=== PATIENT | female | born 1940 | race Caucasian/White ===

== ENCOUNTER → 2017-02-21 | Outpatient (CLI) | payer OTHER ==
[~2017-02-21] MED LIST: AMOX875T PO; CHOL100010 PO; COQ10 PO; CYAN10005 PO; METO25TA3 PO; METO25TA56 PO; MULT-513 PO; OMEG10007 PO; OMEGA RED PO; OMEP40CA41 PO; OXYC-57 PO; [UNRECOGNIZED DRUG - REMARK]
[2017-02-21 12:42] LABS: ALT/SGPT 27 U/L (12-78); AST/SGOT 22 U/L (15-37); BLOOD UREA NITROGEN 10 mg/dl (7-18); BUN/CREATININE RATIO 14.5 (10-20); CARBON DIOXIDE 26 mmol/L (21-32); CHLORIDE 106 mmol/L (98-107); CHOLESTEROL 231 mg/dl (0-200); CREATININE 0.71 mg/dl (0.60-1.20); GLUCOSE 83 mg/dl (70-99); POTASSIUM 3.7 mmol/L (3.5-5.1); SODIUM 140 mmol/L (136-145); TRIGLYCERIDES 186 mg/dl (0-150); VERY LOW DENSITY LIPOPROT CALC 37 mg/dl
[2017-02-21 12:45] LABS: ALKALINE PHOSPHATASE 73 U/L (45-117); CHOLESTEROL/HDL RATIO 3.7; HDL CHOLESTEROL 62 mg/dl; LDL CHOLESTEROL CALCULATED 132 mg/dl
== END | disposition home or self-care (01) ==
LOC: C.LABBFT 10:03
PROVIDERS: ATTEND Nurse Practitioner
DX: E78.5 Hyperlipidemia, unspecified (principal)

== ENCOUNTER 2017-04-20 19:07 | Emergency (ER) | payer OTHER ==
[~2017-04-20] VITALS: Ht 162.6 cm; Wt 61.0 kg
[~2017-04-20 19:07] MED LIST changes: -AMOX875T PO; -CHOL100010 PO; -COQ10 PO; -CYAN10005 PO; -METO25TA3 PO; -METO25TA56 PO; -MULT-513 PO; -OMEG10007 PO; -OMEGA RED PO; -OMEP40CA41 PO; -OXYC-57 PO
[2017-04-20 19:18] VITALS: TEMP 36.3; Ht 162.6 cm; Wt 61.0 kg
[2017-04-20] MEDS ORDERED: METOCLOPRAMIDE HCL INJ 5 MG/ML 2 ML VIAL IV STA (19:44)
[2017-04-20] MEDS ORDERED: SODIUM CHLORIDE 0.9% 1000ML 1,000 ML IV STA (19:44)
[2017-04-20] MEDS ORDERED: MULT-513 PO (20:06)
[2017-04-20] MEDS ORDERED: CYAN10005 PO (20:06)
[2017-04-20] MEDS ORDERED: METO25TA3 PO (20:06)
[2017-04-20] MEDS ORDERED: OMEP40CA41 PO (20:06)
[2017-04-20] MEDS ORDERED: OPTIRAY 320 IV PRN (20:15)
[2017-04-20 20:28] LABS: BASO % 0.7 %; BASO ABS # 0.04 K/uL (0-0.2); COMPLETE YES; EOS % 3.5 %; IG% 0.2 %; LYMPH % 19.3 %; LYMPH ABS # 1.16 K/uL (1.2-3.4); MEAN CELL VOLUME 88.6 fL (80-100); MEAN CORPUSCULAR HEMOGLOBIN 29.7 pg (25-34); MEAN CORPUSCULAR HGB CONC 33.6 g/dl (32-36); MEAN PLATELET VOLUME 9.9 fL (7.4-10.4); NEUT % 65.3 %; PLATELET COUNT 286 K/uL (130-400); RED BLOOD COUNT 4.74 M/uL (4.2-5.4); WHITE BLOOD COUNT 6.01 K/uL (4.8-10.8)
--- NOTE | 2017-04-20 20:33 | EMERGENCY ROOM VISIT NOTE ---
History Report prepared by Tameka: Bryan Gifford Under the Supervision of: Dr. Bj Hernandez M.D. First contact with patient: 19:23 Chief Complaint: ABDOMINAL PAIN Stated Complaint: ABDOMINAL PAIN, SWEATING, BACK PAIN Nursing Triage Summary: Left lower abdominal pain radiating to flank after eating. History of Present Illness The patient is a 77 year old female who presents to the Emergency Room with complaints of intermittent left lower abdominal pain starting a few minutes prior to arrival. She describes it as a sharp pain. The patient had an onset of her symptoms after finishing eating chicken noodle casserole. The patient also reports nausea and vomiting. She currently denies any pain. She has a history of cholecystectomy. She denies any blood thinners. She denies any other complaints. Source of History: patient Onset: a few minutes prior to arrival Position: abdomen (LLQ) Symptom Intensity: No pain currently Quality: sharp Timing: intermittent Associated Symptoms: + nausea, + vomiting Review of Systems See HPI for pertinent positives & negatives. A total of 10 systems reviewed and were otherwise negative. Past Medical & Surgical Surgical Problems: (1) Hx of cholecystectomy Family History Patient reports no known family medical history. Social History Smoking Status: Never Smoker Marital Status: Occupation Status: retired Current/Historical Medications Scheduled Amoxicillin & Pot Clavulanate (Augmentin 875-125 mg), 1 TAB PO BID Cyanocobalamin (Vitamin B-12), 1,000 MCG PO DAILY Metoprolol Succ (Toprol Xl) (Toprol-Xl), 12.5 MG PO BID Multivitamins/Minerals (Mvi With Minerals), 1 TAB PO DAILY Scheduled PRN Omeprazole (Prilosec), 40 MG PO DAILY PRN for Dyspepsia Oxycodone/Acetaminophen 5MG/325MG (Percocet 5MG/325MG), 1-2 TAB PO Q4H PRN for Pain Allergies Coded Allergies: Codeine (Verified Allergy, Mild, ABD PAIN, 03/02/10) Physical Exam Vital Signs Date Time Temp Pulse Resp B/P (MAP) Pulse Ox O2 Delivery O2 Flow Rate FiO2 04/20/17 22:32 57 20 151/64 96 Room Air 04/20/17 21:41 60 16 102/73 97 Room Air 04/20/17 20:52 60 04/20/17 20:44 56 18 136/63 94 Room Air 04/20/17 19:18 36.3 65 20 134/82 92 Room Air Physical Exam GENERAL: Patient is a healthy-appearing well-nourished HEAD: Normocephalic atraumatic EYES: Ocular movements intact pupils equal and react to light OROPHARYNX mucous membranes are moist no exudates present no erythema or edema present NECK: Supple no nuchal rigidity CHEST: Good equal expansion LUNGS: Clear and equal to auscultation CARDIAC: Normal S1 and S2 ABDOMEN: Soft nontender no guarding BACK: No CVA tenderness EXTREMITIES: No pain upon palpation normal muscle strength in all groups no clubbing cyanosis or edema NEURO: Patient is following commands and answering questions appropriately. Alert and oriented x3 Cranial Nerves 2-12 grossly intact Medical Decision & Procedures ER Provider Diagnostic Interpretation: CT and US results as stated below per my review and radiologist interpretation: ABD/PELVIS IV CONTRAST ONLY HISTORY: 77 years-old Female Pt c/o RUQ abd pain COMPARISON: None available TECHNIQUE: Multiple axial CT images of the abdomen and pelvis were obtained following the intravenous administration of 116 mL Optiray 320. A dose lowering technique was used consistent with the principals of JUDAH. FINDINGS: There is minimal dependent bibasilar atelectasis. No pneumoperitoneum identified. Inferior cardiac chambers are unremarkable. Prior cholecystectomy. The liver, spleen, pancreas and adrenal glands appear normal. There is a 2.6 x 2.4 x 2.1 cm hyperattenuating homogeneous lesion of the supra pole left kidney with Hounsfield unit of 78 compatible with hemorrhagic or proteinaceous cyst. Multiple additional cysts are seen in the left. There are several nonobstructing renal calculi on the left measuring up to 5 mm. There is no hydronephrosis. Urinary bladder is collapsed. Uterus appears age appropriate. There is mild atherosclerotic plaquing of the abdominal aorta. No bulky adenopathy is identified. Small sliding type hiatal hernia is noted. There is no bowel obstruction. There is mild wall thickening involving the mid sigmoid colon which may be secondary to nondistention with multiple diverticuli seen within this distribution (for example image 321 of the axial series. The remainder of the colon is within normal limits. The appendix is normal. Soft tissues are unremarkable. Bones appear intact. IMPRESSION: 1. Mild wall thickening of the mid sigmoid colon with associated colonic diverticuli may reflect sequela of nondistention or early acute diverticulitis. 2. Prior cholecystectomy without focal abnormality identified involving the abdominal right upper quadrant. 3. Multiple left-sided renal cysts with proteinaceous or hemorrhagic cyst measuring 2.6 cm. 4. Multiple left-sided nonobstructing renal calculi. 5. Normal appendix. The above report was generated using voice recognition software. It may contain grammatical, syntax or spelling errors. Electronically signed by: Eber Boss M.D. 04/20/2017 9:23 PM Dictated Date/Time: 04/20/2017 9:16 PM ABDOMEN LIMITED (US) HISTORY: 77 years-old Female Pt c/o RUQ abd pain COMPARISON: 03/02/2010 TECHNIQUE: Multiple real-time static images of the abdominal right upper quadrant were obtained assessing grayscale appearance and color flow FINDINGS: Imaged pancreas appears normal with tail obscured by bowel gas. Common bile duct measures 0.9 cm, likely normal post cholecystectomy state from reservoir effect. Liver is diffusely heterogeneous compatible with fatty infiltration measuring up to 12.2 cm. Prior cholecystectomy. The right kidney is normal without hydronephrosis. IMPRESSION: 1. Prior cholecystectomy with likely normal mild postcholecystectomy state common bile duct dilation. 2. Fatty infiltration of the liver. The above report was generated using voice recognition software. It may contain grammatical, syntax or spelling errors. Electronically signed by: Eber Boss M.D. 04/20/2017 9:41 PM Dictated Date/Time: 04/20/2017 9:39 PM Laboratory Results 04/20/17 20:15 Red Blood Count 4.74, Mean Corpuscular Volume 88.6, Mean Corpuscular Hemoglobin 29.7, Mean Corpuscular Hemoglobin Concent 33.6, Mean Platelet Volume 9.9, Neutrophils (%) (Auto) 65.3, Lymphocytes (%) (Auto) 19.3, Monocytes (%) (Auto) 11.0, Eosinophils (%) (Auto) 3.5, Basophils (%) (Auto) 0.7, Neutrophils # (Auto ) 3.93, Lymphocytes # (Auto) 1.16, Monocytes # (Auto) 0.66, Eosinophils # (Auto ) 0.21, Basophils # (Auto) 0.04 04/20/17 20:15 Test 04/20/17 20:15 White Blood Count 6.01 K/uL (4.8-10.8) Red Blood Count 4.74 M/uL (4.2-5.4) Hemoglobin 14.1 g/dL (12.0-16.0) Hematocrit 42.0 % (37-47) Mean Corpuscular Volume 88.6 fL (80-100) Mean Corpuscular Hemoglobin 29.7 pg (25-34) Mean Corpuscular Hemoglobin Concent 33.6 g/dl (32-36) Platelet Count 286 K/uL (130-400) Mean Platelet Volume 9.9 fL (7.4-10.4) Neutrophils (%) (Auto) 65.3 % Lymphocytes (%) (Auto) 19.3 % Monocytes (%) (Auto) 11.0 % Eosinophils (%) (Auto) 3.5 % Basophils (%) (Auto) 0.7 % Neutrophils # (Auto) 3.93 K/uL (1.4-6.5) Lymphocytes # (Auto) 1.16 K/uL (1.2-3.4) Monocytes # (Auto) 0.66 K/uL (0.11-0.59) Eosinophils # (Auto) 0.21 K/uL (0-0.5) Basophils # (Auto) 0.04 K/uL (0-0.2) RDW Standard Deviation 39.5 fL (36.4-46.3) RDW Coefficient of Variation 12.2 % (11.5-14.5) Immature Granulocyte % (Auto) 0.2 % Immature Granulocyte # (Auto) 0.01 K/uL (0.00-0.02) Urine Color YELLOW Urine Appearance CLEAR (CLEAR) Urine pH 5.5 (4.5-7.5) Urine Specific [place] 1.019 (1.000-1.030) Urine Protein NEG (NEG) Urine Glucose (UA) NEG (NEG) Urine Ketones NEG (NEG) Urine Occult Blood 1+ (NEG) Urine Nitrite NEG (NEG) Urine Bilirubin NEG (NEG) Urine Urobilinogen NEG (NEG) Urine Leukocyte Esterase SMALL (NEG) Urine WBC (Auto) 1-5 /hpf (0-5) Urine RBC (Auto) 0-4 /hpf (0-4) Urine Hyaline Casts (Auto) 1-5 /lpf (0-5) Urine Epithelial Cells (Auto) 10-20 /lpf (0-5) Urine Bacteria (Auto) NEG (NEG) Anion Gap 7.0 mmol/L (3-11) Est Creatinine Clear Calc Drug Dose 41.4 ml/min Estimated GFR () 63.4 Estimated GFR (Non- 54.7 BUN/Creatinine Ratio 11.6 (10-20) Calcium Level 9.1 mg/dl (8.5-10.1) Total Bilirubin 0.3 mg/dl (0.2-1) Direct Bilirubin 0.1 mg/dl (0-0.2) Aspartate Amino Transf (AST/SGOT) 27 U/L (15-37) Alanine Aminotransferase (ALT/SGPT) 30 U/L (12-78) Alkaline Phosphatase 83 U/L (45-117) Total Protein 7.5 gm/dl (6.4-8.2) Albumin 3.8 gm/dl (3.4-5.0) Lipase 239 U/L (73-393) Labs reviewed by ED physician. Medications Administered Medications (Trade) Dose Ordered Sig/Madi Route Start Time Stop Time Status Last Admin Dose Admin Sodium Chloride 1,000 ml @ 999 mls/hr Q1H1M STAT IV 04/20/17 19:44 04/20/17 20:44 DC 04/20/17 20:42 999 MLS/HR Metoclopramide HCl (Reglan Inj) 10 mg NOW STAT IV 04/20/17 19:44 04/20/17 19:47 DC 04/20/17 20:42 10 MG ED Course 1922: Past medical records reviewed. The patient was evaluated in room C05. A complete history and physical examination was performed. 1943: Reglan Inj 10 mg IV, Sodium Chloride 1000 ml @ 999 mls/hr IV 5: Upon reexamination the patient is resting comfortably. I discussed results and treatment plan with the patient. She verbalizes agreement and understanding. The patient is ready for discharge. Medical Decision Differential diagnosis: Etiologies such as appendicitis, diverticulitis, PUD, biliary pathology, UTI, pancreatitis, obstruction, mesenteric ischemia, aortic pathology, infections, inflammatory bowel disease, renal colic, as well as others were entertained. This is a 77-year-old female who presents emergency department complaining of abdominal pain. Serial abdominal examinations were performed on the patient in the emergency department no time did the patient exhibit a surgical abdomen. Based on these findings an IV was established, the patient given normal saline bolus. I do feel the patient is well enough to be discharged home however she does appear to have an early diverticulitis on CAT scan. For this reason I will place the patient on Augmentin and stressed the need for follow-up with gastroenterology. Patient was given pain medication for home and I stressed a clear liquid diet for the next 48 hours. The patient is to return to the emergency department if she develops fevers or her pain is out of control. Patient was in agreement with the treatment plan. Medication Reconcilliation Current Medication List: was personally reviewed by me Blood Pressure Screening Patient's blood pressure: Normal blood pressure Impression Primary Impression: Diverticulitis Additional Impression: Abdominal pain Scribe Attestation The scribe's documentation has been prepared under my direction and personally reviewed by me in its entirety. I confirm that the note above accurately reflects all work, treatment, procedures, and medical decision making performed by me. Departure Information Dispostion Home / Self-Care Prescriptions Oxycodone/Acetaminophen 5MG/325MG (PERCOCET 5MG/325MG) Tab 1-2 TAB PO Q4H Y for Pain, #14 TAB Prov: Bj Hernandez MD 04/20/17 Amoxicillin & Pot Clavulanate (Augmentin 875-125 mg) 1 Tab Tab 1 TAB PO BID for 10 Days, #20 TAB Prov: Bj Hernandez MD 04/20/17 Referrals Venessa Healy, C.R.N.P. (PCP) Forms HOME CARE DOCUMENTATION FORM, IMPORTANT VISIT INFORMATION, School Instructions, Work Instructions Patient Instructions Diverticulosis Diverticulitis, [facility] Additional Instructions Follow up with DR Toure's office Clear liquid diet next 48 hours You received narcotic or benzodiazepene medication while in the emergency room today. Do not drive, operate heavy machinery, or drink alcohol under the influence of this medication. Take 600 mg Ibuprofen every 6 hours Take Percocet for breakthrough pain You have been examined and treated today on an emergency basis only. This is not a substitute for, or an effort to provide, complete comprehensive medical care. It is impossible to recognize and treat all injuries or illnesses in a single emergency department visit. It is therefore important that you follow up closely with your PCP. Call as soon as possible for an appointment. Thank you for your time and consideration. I look forward to speaking with you again soon. Please don't hesitate to call us if you have any questions. Problem Qualifiers Primary Impression: Diverticulitis Diverticulitis site: large intestine Diverticulitis bleeding: unspecified bleeding status Diverticulitis complication: without perforation or abscess Qualified Codes: K57.32 - Diverticulitis of large intestine without perforation or abscess without bleeding Additional Impression: Abdominal pain Abdominal location: generalized Qualified Codes: R10.84 - Generalized abdominal pain
[2017-04-20 20:49] LABS: BUN/CREATININE RATIO 11.6 (10-20); CALCIUM 9.1 mg/dl (8.5-10.1); POTASSIUM 3.2 mmol/L (3.5-5.1)
[2017-04-20 20:58] LABS: URINE APPEARANCE CLEAR (CLEAR); URINE BILIRUBIN NEG (NEG); URINE COLOR YELLOW; URINE NITRITE NEG (NEG); URINE PH 5.5 (4.5-7.5); URINE SPECIFIC GRAVITY 1.019 (1.000-1.030); UROBILINOGEN NEG (NEG)
[2017-04-20 21:02] LABS: MANUAL MICROSCOPIC REQUIRED? NO; REVIEW REQ? NO
--- NOTE | 2017-04-20 21:24 | DIAGNOSTIC IMAGING REPORT ---
ABD/PELVIS IV CONTRAST ONLY HISTORY: 77 years-old Female Pt c/o RUQ abd pain COMPARISON: None available TECHNIQUE: Multiple axial CT images of the abdomen and pelvis were obtained following the intravenous administration of 116 mL Optiray 320. A dose lowering technique was used consistent with the principals of JUDAH. FINDINGS: There is minimal dependent bibasilar atelectasis. No pneumoperitoneum identified. Inferior cardiac chambers are unremarkable. Prior cholecystectomy. The liver, spleen, pancreas and adrenal glands appear normal. There is a 2.6 x 2.4 x 2.1 cm hyperattenuating homogeneous lesion of the supra pole left kidney with Hounsfield unit of 78 compatible with hemorrhagic or proteinaceous cyst. Multiple additional cysts are seen in the left. There are several nonobstructing renal calculi on the left measuring up to 5 mm. There is no hydronephrosis. Urinary bladder is collapsed. Uterus appears age appropriate. There is mild atherosclerotic plaquing of the abdominal aorta. No bulky adenopathy is identified. Small sliding type hiatal hernia is noted. There is no bowel obstruction. There is mild wall thickening involving the mid sigmoid colon which may be secondary to nondistention with multiple diverticuli seen within this distribution (for example image 321 of the axial series. The remainder of the colon is within normal limits. The appendix is normal. Soft tissues are unremarkable. Bones appear intact. IMPRESSION: 1. Mild wall thickening of the mid sigmoid colon with associated colonic diverticuli may reflect sequela of nondistention or early acute diverticulitis. 2. Prior cholecystectomy without focal abnormality identified involving the abdominal right upper quadrant. 3. Multiple left-sided renal cysts with proteinaceous or hemorrhagic cyst measuring 2.6 cm. 4. Multiple left-sided nonobstructing renal calculi. 5. Normal appendix. The above report was generated using voice recognition software. It may contain grammatical, syntax or spelling errors. Electronically signed by: Eber Boss M.D. 04/20/2017 9:23 PM Dictated Date/Time: 04/20/2017 9:16 PM
--- NOTE | 2017-04-20 21:42 | DIAGNOSTIC IMAGING REPORT ---
ABDOMEN LIMITED (US) HISTORY: 77 years-old Female Pt c/o RUQ abd pain COMPARISON: 03/02/2010 TECHNIQUE: Multiple real-time static images of the abdominal right upper quadrant were obtained assessing grayscale appearance and color flow FINDINGS: Imaged pancreas appears normal with tail obscured by bowel gas. Common bile duct measures 0.9 cm, likely normal post cholecystectomy state from reservoir effect. Liver is diffusely heterogeneous compatible with fatty infiltration measuring up to 12.2 cm. Prior cholecystectomy. The right kidney is normal without hydronephrosis. IMPRESSION: 1. Prior cholecystectomy with likely normal mild postcholecystectomy state common bile duct dilation. 2. Fatty infiltration of the liver. The above report was generated using voice recognition software. It may contain grammatical, syntax or spelling errors. Electronically signed by: Eber Boss M.D. 04/20/2017 9:41 PM Dictated Date/Time: 04/20/2017 9:39 PM
[2017-04-20] MEDS ORDERED: AMOX875T PO (22:08)
[2017-04-20] MEDS ORDERED: OXYC-57 PO (22:09)
[2017-04-20 22:32] VITALS: BP 151/64; PULSE 57; O2SAT 96
[2017-06-06] MEDS ORDERED: CHOL100010 PO (11:51)
[2017-06-06] MEDS ORDERED: OMEGA RED PO (11:52)
== END 2017-04-20 22:47 | disposition home or self-care (01) ==
LOC: C.EDB 19:08 → C.EDC 22:47
DX: K57.92 Diverticulitis of intestine, part unspecified, without perforation or abscess without bleeding (principal); Z90.49 Acquired absence of other specified parts of digestive tract; Z79.899 Other long term (current) drug therapy; Z88.5 Allergy status to narcotic agent

== ENCOUNTER → 2017-05-18 | Outpatient (CLI) | payer OTHER ==
[~2017-05-18] MED LIST changes: +CHOL100010 PO; +CYAN10005 PO; +METO25TA3 PO; +MULT-513 PO; +OMEGA RED PO; +OMEP40CA41 PO; +OPTIRAY 320 IV PRN; +OXYC-57 PO; -[UNRECOGNIZED DRUG - REMARK]
--- NOTE | 2017-05-18 16:58 | DIAGNOSTIC IMAGING REPORT ---
CT SCAN OF THE ABDOMEN AND PELVIS WITH IV CONTRAST CLINICAL HISTORY: Right upper quadrant abdominal pain. Follow-up questioned diverticulitis. COMPARISON STUDY: Abdominal CT dated 04/20/2017. TECHNIQUE: Following the IV administration of 92 cc of Optiray 320, CT scan of the abdomen and pelvis is performed from the lung bases to the proximal femora. Images are reviewed in the axial, sagittal, and coronal planes. IV contrast was administered without complication. Automated dose control exposure was utilized. A dose lowering technique was utilized adhering to the principles of ALARA. CT DOSE: 276.21 mGy.cm FINDINGS: Lung bases: The heart is normal in size and without pericardial effusion. There are 2 low suspicion pleural-based nodules at the right lung base measuring up to 4 mm seen on images #61 and #78. The lung bases are otherwise clear noting dependent atelectasis. Liver: The contrast-enhanced liver is normal in size, contour, and attenuation. There is minimal central intrahepatic biliary ductal dilatation. The hepatic veins and portal veins are patent. Gallbladder: Surgically absent noting clips in the gallbladder fossa. Spleen: Normal in size and attenuation. Pancreas: Moderately atrophic and grossly unremarkable. Adrenal glands: Unremarkable. Kidneys: The contrast enhanced kidneys demonstrate cortical atrophy and are without hydronephrosis. The kidneys enhance symmetrically. There are numerous nonobstructing left renal calculi. A 2.8 cm exophytic lesion arising from the upper pole of left kidney does not meet CT criteria for simple cyst. An additional 1.8 cm complex exophytic lesion arising from left the upper pole is seen on image #95. Subcentimeter cortical hypodensities likely represent cysts but are too small for definitive characterization. Abdominal vasculature: The abdominal aorta is normal in course and caliber noting mild to moderate atherosclerotic calcification. Bowel: The small bowel and colon are normal in course and caliber. There are scattered colonic diverticula without CT evidence of acute diverticulitis. The appendix is well-visualized and normal. Peritoneum: There is no intraperitoneal free air or abdominal ascites. Lymphadenopathy: None. Pelvic viscera: Although decompressed, the bladder wall appears thickened and hyperemic. Pericystic stranding is noted. The endometrium appears thickened for age measuring up to 5 mm. No adnexal lesion is seen. Skeletal structures: The skeletal structures are osteopenic. There is a mild superior endplate compression deformity of T12. Mild lumbosacral spondylosis is observed. No lytic or blastic lesions are seen. IMPRESSION: 1. Findings suggest cystitis. Correlation with clinical findings and urinalysis will be required. 2. There are scattered colonic diverticula without CT evidence of acute diverticulitis. 3. There are nonobstructing left renal calculi. 4. There are 2 exophytic lesions arising from the upper pole of left kidney measuring up to 2.8 cm that do not meet CT criteria for simple cysts the these likely represents a complex/hemorrhagic cysts and follow-up with a nonemergent renal ultrasound is recommended for confirmation. 5. The endometrium appears thickened for age measuring up to 5 mm. This is not well assessed by CT and follow-up with a nonemergent pelvic ultrasound is recommended for further interrogation. 6. Additional findings as above. Electronically signed by: Kaden Ford M.D. 05/18/2017 4:56 PM Dictated Date/Time: 05/18/2017 4:47 PM
== END | disposition home or self-care (01) ==
LOC: C.CTS 14:17
PROVIDERS: ATTEND Physician Assistant
DX: K57.92 Diverticulitis of intestine, part unspecified, without perforation or abscess without bleeding (principal); N20.0 Calculus of kidney

== ENCOUNTER → 2017-05-24 | Outpatient (CLI) | payer OTHER ==
[~2017-05-24] MED LIST changes: -OPTIRAY 320 IV PRN
--- NOTE | 2017-05-24 09:42 | DIAGNOSTIC IMAGING REPORT ---
RENAL ULTRASOUND CLINICAL HISTORY: Left renal cyst. Kidney stone. COMPARISON STUDY: CT of the abdomen and pelvis May 18, 2017. TECHNIQUE: Sonography of the kidneys and the urinary bladder was performed. FINDINGS: The right kidney measures 9.4 cm in maximal dimension and the left measures 10 cm. There is no hydronephrosis. Mild renal cortical thinning is noted. The left renal calculi shown on CT of May 18, 2017 are not visualized by sonography. 2 left renal lesions correspond to the lesions shown on CT of May 18, 2017. The upper pole lesion is partially obscured but these lesions appear anechoic and are consistent with cysts. The left ureteral jet was visualized. The right ureteral jet was not visualized. IMPRESSION: 1. Two left renal lesions which measure up to 2 cm and correspond to the lesions shown on CT of May 18, 2017. These are consistent with cysts. 2. No hydronephrosis. The left renal calculi shown on prior CT are not visualized by sonography, likely due to their size. Electronically signed by: Blair Giles M.D. 05/24/2017 9:40 AM Dictated Date/Time: 05/24/2017 9:35 AM
--- NOTE | 2017-05-24 09:48 | DIAGNOSTIC IMAGING REPORT ---
PELVIC ULTRASOUND, TRANSABDOMINAL AND TRANSVAGINAL HISTORY: Abnormal CT scan. R93.8 Thickened endometrium COMPARISON: Abdomen and pelvis CT 05/18/2017. FINDINGS: Uterus: 5.8 x 3.5 x 2.6 cm. No uterine masses. Endometrial stripe: Small amount of fluid within the endometrium. A few nodular echogenic foci within the fundus of the endometrium. Largest echogenic nodule seen on image 28 measures 5 mm. Right ovary: Obscured by overlying bowel gas. Left ovary: Obscured by overlying bowel gas. Miscellaneous:No pelvic free fluid. IMPRESSION: Small amount of fluid within endometrium with a few nodular/polypoid foci within the endometrium measuring up to 5 mm. This is abnormal in a postmenopausal female. Clinical correlation recommended to assess for postmenopausal bleeding. Gynecologic consultation is recommended. Electronically signed by: Gregorio Lock M.D. 05/24/2017 9:46 AM Dictated Date/Time: 05/24/2017 9:41 AM
== END | disposition home or self-care (01) ==
LOC: C.ULTR 08:18
PROVIDERS: ATTEND Nurse Practitioner
DX: N28.1 Cyst of kidney, acquired (principal); N20.0 Calculus of kidney; R93.8 Abnormal findings on diagnostic imaging of other specified body structures

== ENCOUNTER → 2017-06-20 | Day surgery (SDC) | payer OTHER ==
[2017-06-06 11:53] VITALS: BMI 22.0
[~2017-06-20] VITALS: Ht 162.6 cm; Wt 59.1 kg
[~2017-06-20] MED LIST changes: +LIDOCAINE HCL 2% 2 ML VIAL (20MG/ML) ONE; -OXYC-57 PO; +PROPOFOL IV EMULSION 10 MG/ML 20 ML VIAL IV ONE; +SODIUM CHLORIDE 0.9% 500ML 500 ML IV ONE
[2017-06-20 11:01] VITALS: Ht 162.6 cm; Wt 59.1 kg
--- NOTE | 2017-06-20 11:38 | Endo History and Physical ---
History & Physical Date of Service: Jun 20, 2017. Chief Complaint: R/O Diverticulitis Referring Physician: RASHIDA Romo History of Present Illness 77 yo CF who presents for colonoscopy secondary to diverticulitis. Past Surgical History Hx Cardiac Surgery: No Hx Internal Defibrillator: No Hx Pacemaker: No Hx Abdominal Surgery: Yes (BRIDGET) Hx of Implantable Prosthesis: No Hx Post-Op Nausea and Vomiting: No Hx Cancer Surgery: No Hx Thoracic Surgery: No Hx Orthopedic: No Hx Urinary Tract Surgery: No Family History None Social History Smoking Status: Never Smoker Hx Substance Use: No Hx Alcohol Use: Yes ("A COUPLE BEERS PER DAY") Allergies Coded Allergies: Codeine (Verified Allergy, Mild, ABD PAIN, 06/06/17) Sulfa Antibiotics (Verified Allergy, Unknown, ABDOMINAL PAIN, 06/06/17) Current Medications Reported Home Medications Medications Dose Route/Sig Max Daily Dose Days Date Category [Una Red] 1 Tab PO DAILY 06/06/17 Reported Vitamin D (Cholecalciferol) 1,000 Unit Tab 1 Tab PO DAILY 06/06/17 Reported Vitamin B-12 (Cyanocobalamin) 1,000 Mcg Tab 1,000 Mcg PO DAILY 04/20/17 Reported Prilosec (Omeprazole) 40 Mg Cap 40 Mg PO DAILY PRN 04/20/17 Reported Mvi With Minerals (Multivitamins/Minerals) Tab 1 Tab PO DAILY 04/20/17 Reported Toprol-Xl (Metoprolol Succinate) 25 Mg Tabcr 12.5 Mg PO BID 04/20/17 Reported Vital Signs Weight (Kilograms): 59.09 Height (Feet): 5 Height (Inches): 4 Date Time Temp Pulse Resp B/P (MAP) Pulse Ox O2 Delivery O2 Flow Rate FiO2 06/20/17 11:08 36.5 48 20 156/69 (98) 99 Room Air Physical Exam General Appearance: WD/WN, no apparent distress Respiratory/Chest: Auscultation: breath sounds normal Cardiovascular: Heart Auscultation: RRR Abdomen: Bowel Sounds: normal Inspection & Palpation: soft, non-distended, no tenderness, guarding & rebound Assessment and Plan Assessment: 77 yo CF who presents for colonoscopy secondary to diverticulitis. Plan: Proceed with colonoscopy.
--- NOTE | 2017-06-20 12:24 | GI REPORT ---
Procedure Date: 06/20/2017 11:56 AM Procedure: Colonoscopy Indications: Suspected diverticulitis Medicines: Monitored Anesthesia Care Complications: No immediate complications. Estimated Blood Loss: Estimated blood loss: none. Procedure: Pre-Anesthesia Assessment: - Prior to the procedure, a History and Physical was performed, and patient medications and allergies were reviewed. The patient's tolerance of previous anesthesia was also reviewed. The risks and benefits of the procedure and the sedation options and risks were discussed with the patient. All questions were answered, and informed consent was obtained. Prior Anticoagulants: The patient has taken no previous anticoagulant or antiplatelet agents. ASA Grade Assessment: II - A patient with mild systemic disease. After reviewing the risks and benefits, the patient was deemed in satisfactory condition to undergo the procedure. After I obtained informed consent, the scope was passed under direct vision. Throughout the procedure, the patient's blood pressure, pulse, and oxygen saturations were monitored continuously. The scope was introduced through the anus and advanced to the terminal ileum. The colonoscopy was performed without difficulty. The patient tolerated the procedure well. The quality of the bowel preparation was good. Findings: Non-bleeding internal hemorrhoids were found during retroflexion. The hemorrhoids were small. Impression: - Non-bleeding internal hemorrhoids. - No specimens collected. Recommendation: - Resume previous diet. - Continue present medications. - No repeat colonoscopy due to age and the absence of advanced adenomas. - Return to primary care physician as previously scheduled. Edi Toure DO 06/20/2017 12:24:39 PM This report has been signed electronically. Note Initiated On: 06/20/2017 11:56 AM I attest to the content of the Intraoperative Record and orders documented therein, exceptions below
--- NOTE | 2017-06-20 12:25 | Discharge Instructions ---
Endoscopy Patient Instructions Date / Procedure(s) Performed Jun 20, 2017. Colonoscopy Allergy Information Coded Allergies: Codeine (Verified Allergy, Mild, ABD PAIN, 06/06/17) Sulfa Antibiotics (Verified Allergy, Unknown, ABDOMINAL PAIN, 06/06/17) Discharge Date / Findings Jun 20, 2017. Internal hemorrhoids Medication Instructions OK to resume all medications today as prescribed Reported Home Medications Medications Dose Route/Sig Max Daily Dose Days Date Category [[place] Red] 1 Tab PO DAILY 06/06/17 Reported Vitamin D (Cholecalciferol) 1,000 Unit Tab 1 Tab PO DAILY 06/06/17 Reported Vitamin B-12 (Cyanocobalamin) 1,000 Mcg Tab 1,000 Mcg PO DAILY 04/20/17 Reported Prilosec (Omeprazole) 40 Mg Cap 40 Mg PO DAILY PRN 04/20/17 Reported Mvi With Minerals (Multivitamins/Minerals) Tab 1 Tab PO DAILY 04/20/17 Reported Toprol-Xl (Metoprolol Succinate) 25 Mg Tabcr 12.5 Mg PO BID 04/20/17 Reported Provider Instructions Activity Restrictions - No exercising or heavy lifting for 24 hours. - Do not drink alcohol the day of the procedure. - Do not drive a car or operate machinery until the day after the procedure. - Do not make any important decisions or sign important papers in 24 hours after the procedure. Following Day: - Return to full activity which may include returning to work/school. Diet Start your diet with liquids and light foods (jello, soup, juice, toast). Then eat your usual diet if not nauseated. Treatment For Common After Affects For mild abdominal pain, bloating, or excessive gas: - Rest - Eat lightly - Lie on right side Follow-Up Information Follow-up with RASHIDA Romo as scheduled Anesthesia Information What You Should Know You have had a procedure that required some medicine to reduce anxiety and discomfort. This treatment is called moderate sedation. After receiving the treatment, you may be sleepy, but you will be able to breathe on your own. The effects of the treatment may last for several hours. Follow these instructions along with Activity/Diet recommendations noted above: * Do NOT do anything where dizziness or clumsiness would be dangerous. * Rest quietly at home today, then you can be up and about tomorrow. * Have a responsible person stay with you the rest of today. * You may have had an I.V. today. If so, you may take the dressing off later today. Recommendations Call your doctor if: * Trouble breathing * Continuous vomiting for more than 24 hours * Temperature above 101 degrees * Severe abdominal pain or bloating * Pain not relieved by pain medicine ordered * There is increased drainage or redness from any incision * A large amount of rectal bleeding greater than 2-3 tablespoons. (If you had a polyp/s removed or have hemorrhoids, a small amount of blood - from the rectum is to be expected.) * You have any unanswered questions or concerns. IN THE EVENT OF A SERIOUS EMERGENCY, GO TO THE NEAREST EMERGENCY ROOM Your discharge instructions were prepared by provider Edi Toure. Patient Instructions Signature Page Myriam Steen Patient (or Guardian) Signature/Date: I have read and understand the instructions given to me by my caregivers. Caregiver/RN/Doctor Signature/Date: The above-named patient and/or guardian has received patient instructions on this date. + Original Patient Signature Page (only) stays with chart. Please make copy for patient.
[2017-06-20 12:30] VITALS: BP 135/73; PULSE 48; O2SAT 97
--- NOTE | 2017-06-20 12:54 | Anesthesiology Progress Note ---
Anesthesia Post Op Note Date & Time Jun 20, 2017 at 12:53 Vital Signs Pain Intensity: 0 Vital Signs Past 12 Hours Date Time Temp Pulse Resp B/P (MAP) Pulse Ox O2 Delivery O2 Flow Rate FiO2 06/20/17 12:30 48 20 135/73 (93) 97 Room Air 06/20/17 12:23 36.1 51 20 122/66 (84) 95 Room Air 06/20/17 11:08 36.5 48 20 156/69 (98) 99 Room Air Notes Mental Status: alert / awake / arousable, participated in evaluation Pt Amnestic to Procedure: Yes Nausea / Vomiting: adequately controlled Pain: adequately controlled Airway Patency, RR, SpO2: stable & adequate BP & HR: stable & adequate Hydration State: stable & adequate Anesthetic Complications: no major complications apparent
== END | disposition home or self-care (01) ==
LOC: C.GI 10:49
PROVIDERS: ATTEND Internal Medicine
DX: K64.8 Other hemorrhoids (principal)

== ENCOUNTER → 2017-07-10 | Outpatient (CLI) | payer OTHER ==
[~2017-07-10] MED LIST changes: -LIDOCAINE HCL 2% 2 ML VIAL (20MG/ML) ONE; -PROPOFOL IV EMULSION 10 MG/ML 20 ML VIAL IV ONE; -SODIUM CHLORIDE 0.9% 500ML 500 ML IV ONE
== END ==
LOC: C.PATHSPEC 17:48
PROVIDERS: ATTEND Obstetrics & Gynecology
DX: N85.9 Noninflammatory disorder of uterus, unspecified (principal)

== ENCOUNTER 2017-07-21 09:34 | Day surgery (SDC) | payer OTHER ==
[2017-07-20 11:48] VITALS: BMI 23.0
--- NOTE | 2017-07-20 12:07 | PAT Medication Instructions ---
Service Date Jul 20, 2017. Current Home Medication List Cholecalciferol (Vitamin D), 1 TAB PO QAM Cyanocobalamin (Vitamin B-12), 1,000 MCG PO QAM Fish Oil ([place]-3), 1 CAP PO QAM Metoprolol Tartrate (Lopressor) (Lopressor), 12.5 MG PO QAM Multivitamins/Minerals (Mvi With Minerals), 1 TAB PO QAM Omeprazole (Prilosec), 40 MG PO QAM [Coq10], 1 TAB PO QAM Medication Instructions For Your Scheduled Surgery - Hold the following medications the morning of surgery: [Coq10], 1 TAB PO QAM Multivitamins/Minerals (Mvi With Minerals), 1 TAB PO QAM Fish Oil ([place]-3), 1 CAP PO QAM Cholecalciferol (Vitamin D), 1 TAB PO QAM Cyanocobalamin (Vitamin B-12), 1,000 MCG PO QAM - Take the following medications the morning of surgery with a sip of water: Omeprazole (Prilosec), 40 MG PO QAM Metoprolol Tartrate (Lopressor) (Lopressor), 12.5 MG PO QAM If you have any questions please call us at [phone] or [phone] or [phone]
[2017-07-20 12:53] LABS: URINE APPEARANCE CLEAR (CLEAR); URINE BILIRUBIN NEG (NEG); URINE COLOR YELLOW; URINE NITRITE NEG (NEG); URINE PH 6.5 (4.5-7.5); URINE SPECIFIC GRAVITY 1.019 (1.000-1.030); UROBILINOGEN NEG (NEG)
[2017-07-20 12:55] LABS: BASO % 1.2 %; BASO ABS # 0.06 K/uL (0-0.2); COMPLETE YES; EOS % 3.4 %; HEMATOCRIT 38.7 % (37-47); IG% 0.6 %; LYMPH % 26.5 %; LYMPH ABS # 1.31 K/uL (1.2-3.4); MEAN CELL VOLUME 87.6 fL (80-100); MEAN CORPUSCULAR HEMOGLOBIN 29.6 pg (25-34); MEAN CORPUSCULAR HGB CONC 33.9 g/dl (32-36); MEAN PLATELET VOLUME 9.9 fL (7.4-10.4); MONO % 14.4 %; NEUT % 53.9 %; PLATELET COUNT 278 K/uL (130-400); RED BLOOD COUNT 4.42 M/uL (4.2-5.4); WHITE BLOOD COUNT 4.94 K/uL (4.8-10.8)
[2017-07-20 13:06] LABS: BUN/CREATININE RATIO 23.8 (10-20); CALCIUM 8.6 mg/dl (8.5-10.1); CREATININE 0.63 mg/dl (0.60-1.20); MANUAL MICROSCOPIC REQUIRED? NO; POTASSIUM 3.6 mmol/L (3.5-5.1); REVIEW REQ? NO
[~2017-07-21] VITALS: Ht 162.6 cm; Wt 62.2 kg
[~2017-07-21 09:34] MED LIST changes: +COQ10 PO; +LACTATED RINGER'S 1000ML 1,000 ML IV SCH; -METO25TA3 PO; +METO25TA56 PO; +OMEG10007 PO; -OMEGA RED PO
[2017-07-21 09:56] VITALS: BP 185/87; PULSE 61; TEMP 36.6; O2SAT 100; Ht 162.6 cm; Wt 62.2 kg
--- NOTE | 2017-07-21 10:44 | History & Physical Bridge Note ---
H&P Re-Evaluation Bridge Note: I have examined the patient, reviewed the History & Physical and in the interval since the performance of the History & Physical I have noted the following changes of clinical significance: No changes noted
[2017-07-21] MEDS ORDERED: FENTANYL CITRATE INJ 50 MCG/1 ML 2 ML VIAL ONE (11:40)
[2017-07-21] MEDS ORDERED: MIDAZOLAM HCL 1 MG/ML 2ML VIAL ONE (11:40)
[2017-07-21] MEDS ORDERED: FENTANYL CITRATE INJ 50 MCG/1 ML 2 ML VIAL IV PRN (12:15)
[2017-07-21] MEDS ORDERED: ONDANSETRON INJ 2 MG/ML 2 ML VIAL IV PRN ×2 (12:15→12:30)
[2017-07-21] MEDS ORDERED: EpHEDrine SULFATE INJ 50 MG/ML AMP IV PRN (12:15)
[2017-07-21] MEDS ORDERED: PROMETHAZINE HCL INJ 6.25 MG in SODIUM CHLORIDE 0.9% 50ML 50 ML IV PRN (12:15)
[2017-07-21] MEDS ORDERED: ATROPINE SULFATE 0.1 MG/ML 5ML SYR IV PRN (12:15)
[2017-07-21] MEDS ORDERED: SODIUM CHLORIDE 0.9% 1000ML 1,000 ML IV SCH (12:28)
[2017-07-21] MEDS ORDERED: PROMETHAZINE HCL INJ 25 MG in SODIUM CHLORIDE 0.9% 50ML 50 ML IV PRN (12:30)
[2017-07-21] MEDS ORDERED: KETOROLAC TROMETHAMINE 15 MG/ML VIAL IV. PRN (12:30)
[2017-07-21] MEDS ORDERED: OXYCODONE/ACETAMINOPHEN 5-325 TAB PO PRN ×2 (12:30)
--- NOTE | 2017-07-21 12:30 | [facility] Post Operative Brief Note ---
Immediate Operative Summary Operative Date Jul 21, 2017. Pre-Operative Diagnosis Abdnormal ultrasound of Uterus Post-Operative Diagnosis Thickening of Endometrium Procedure(s) Performed Dilation and Currettage, Hysterosocpy Surgeon Dr. Connie Patten Agricultural Equipment Sales Manager Surgeon(s) None Estimated Blood Loss 3mL Findings Atrophic endometrial lining. Bilateral tubal ostia visualized. Scant amount of endometrial curettings. Specimens Specimen A. Endometrial Currettings Drains bladder drained prior to procedure. Anesthesia general Complication(s) None Disposition Recovery Room / PACU
--- NOTE | 2017-07-21 12:31 | Discharge Instructions ---
Discharge Instructions Date of Service Jul 21, 2017. Visit Reason for Visit: Thickened Endometrium Discharge Discharge Diagnosis / Problem: s/p hysteroscopy, D&C Discharge Goals Goal(s): Diagnostic testing, Therapeutic intervention Activity Recommendations Activity Limitations: per Instructions/Follow-up section Anesthesia . Post Anesthesia Instructions: If you have had General Anesthesia or IV Sedation: * Do not drive today. * Resume driving when surgeon permits. * Do not make important decisions or sign legal documents today. * Call surgeon for: 1. Temperature elevations greater than 101 degrees F. 2. Uncontrollable pain. 3. Excessive bleeding. 4. Persistent nausea and vomiting. 5. Medication intolerance (nausea, vomiting or rash). * For nausea and vomiting use only clear liquids such as: tea, soda, bouillon until nausea subsides, then gradually increase diet as tolerated. * If you have any concerns or questions, call your surgeon's office. If physician is unavailable and it is an emergency, call 911 or go to the nearest emergency room. . Instructions / Follow-Up Instructions / Follow-Up ACTIVITY RECOMMENDATIONS: * Avoid tampons, douching, hot tubs, pools, and intercourse until bleeding has stopped. * May shower as usual. * No strenuous activity for 24-48 hours. After 24-48 hours, you may do anything you feel like doing (driving and sports are okay). SPECIAL CARE INSTRUCTIONS: Special Diet: * Mild nausea may occur in the immediate post-operative period. * Take clear liquids such as tea, cola or bouillon until all nausea has subsided; you may then resume your normal diet. Special Care: * Light bleeding and vaginal spotting can last from a few days to 3-4 weeks. Call your doctor if bleeding becomes heavier than the heaviest part of your period. * Check your temperature twice a day for one week. If it goes above 100.4 degrees Fahrenheit (38.0 Celsius), notify your doctor. * Call your doctor's office for an appointment for 6 weeks after your surgery. FOLLOW-UP VISIT: Call your doctor's office for an appointment for 6 weeks after your surgery. Diet Recommendations Recommended Home Diet: resume previous diet Procedures Procedures Performed: Dilation and Currettage, Hysterosocpy Pending Studies Studies pending at discharge: yes List of pending studies: pathology results Medical Emergencies . Who to Call and When: Medical Emergencies: If at any time you feel your situation is an emergency, please call 911 immediately. . Non-Emergent Contact Non-Emergency issues call your: Primary Care Provider, Non Destructive Evaluation Technician . . "Provider Documentation" section prepared by Connie Patten. .
[2017-07-21] MEDS ORDERED: DEXAMETHASONE SOD INJ 4 MG/ML VIAL ONE (12:35)
[2017-07-21] MEDS ORDERED: ONDANSETRON INJ 2 MG/ML 2 ML VIAL ONE (12:35)
[2017-07-21] MEDS ORDERED: PROPOFOL IV EMULSION 10 MG/ML 20 ML VIAL IV ONE (12:35)
[2017-07-21] MEDS ORDERED: LIDOCAINE HCL 2% 2 ML VIAL (20MG/ML) ONE (12:35)
--- NOTE | 2017-07-21 12:48 | OPERATIVE REPORT ---
DATE OF OPERATION: 07/21/2017 PREOPERATIVE DIAGNOSES: Abnormal ultrasound of the uterus and thickening of endometrium and cervical stenosis. POSTOPERATIVE DIAGNOSES: Same. PROCEDURES PERFORMED: Dilation and curettage and hysteroscopy. SURGEON: Connie Patten DO HOST: None. ESTIMATED BLOOD LOSS: 3 mL. FINDINGS: Atrophic endometrial lining. Bilateral tubal ostia were visualized. There was a scant amount of endometrial curettings obtained. SPECIMENS: Endometrial curettings. DRAINS: Bladder drained prior procedure. ANESTHESIA: General. COMPLICATIONS: None. DISPOSITION: Stable and good to recovery area. INDICATIONS FOR PROCEDURE: The patient is a 77-year-old who had undergone a CT scan for periumbilical pain. Incidentally noted was a 5-mm thickened endometrium with fluid in the endometrial canal. Ultrasound was obtained to follow up and the same findings were noted. Attempt was made at the office to perform endometrial biopsy; however, results of the specimen were scant and therefore, inconclusive results were obtained the [facility] and could not definitively rule out malignancy. DESCRIPTION OF PROCEDURE: The patient was seen in the preoperative holding area, where risks, benefits, and alternatives to surgery were reviewed. She elected to proceed with surgery. She had previously signed informed consent in the office under no duress. She was taken to the operating room, where general anesthesia was administered. She was prepared and draped in the usual sterile fashion with feet in Yellofin stirrups in the dorsal lithotomy position. A timeout was confirmed. The bladder was drained prior to procedure. The weighted speculum was placed in the vagina. The cervix was visualized and the anterior lip was grasped with a single tooth tenaculum. The uterus was then sounded to 7 cm. The cervix was then sequentially dilated to admit the hysteroscope. The hysteroscope was inserted and the above noted findings were seen. Hysteroscope was removed and a gentle curettage with a sharp curette was undertaken. There was only a scant amount of tissue obtained due to the atrophic nature of the endometrial lining. This was all sent to pathology. All instruments were removed from the vagina. Excellent hemostasis was observed and the patient was taken to the postoperative area in stable and good condition. I attest to the content of the Intraoperative Record and any orders documented therein. Any exception s are noted below.
--- NOTE | 2017-07-21 12:54 | Anesthesiology Progress Note ---
Anesthesia Post Op Note Date & Time Jul 21, 2017 at 12:54 Vital Signs Pain Intensity: 0 Vital Signs Past 12 Hours Date Time Temp Pulse Resp B/P (MAP) Pulse Ox O2 Delivery O2 Flow Rate FiO2 07/21/17 12:31 36.1 68 12 143/71 99 Oxymask 10 07/21/17 09:56 36.6 61 18 185/87 (119) 100 Room Air Notes Mental Status: alert / awake / arousable, participated in evaluation Pt Amnestic to Procedure: Yes Nausea / Vomiting: adequately controlled Pain: adequately controlled Airway Patency, RR, SpO2: stable & adequate BP & HR: stable & adequate Hydration State: stable & adequate Anesthetic Complications: no major complications apparent
[2017-07-21 13:20] VITALS: BP 142/74; PULSE 79; TEMP 36.2; O2SAT 95
[2017-07-21 13:50] VITALS: BP 142/74; PULSE 68; O2SAT 97
== END 2017-07-21 14:50 | disposition home or self-care (01) ==
LOC: C.ACU 09:34
PROVIDERS: ATTEND Obstetrics & Gynecology
DX: N88.2 Stricture and stenosis of cervix uteri (principal); R93.8 Abnormal findings on diagnostic imaging of other specified body structures; J21.9 Acute bronchiolitis, unspecified; D64.9 Anemia, unspecified; N28.1 Cyst of kidney, acquired; I10 Essential (primary) hypertension; E78.5 Hyperlipidemia, unspecified; M81.0 Age-related osteoporosis without current pathological fracture; M35.00 Sjogren syndrome, unspecified; R91.1 Solitary pulmonary nodule; Z79.899 Other long term (current) drug therapy